=== PATIENT | male | born 1955 | race Hispanic/Latino ===

== ENCOUNTER 2018-12-08 23:21 | Emergency (ER) | payer OTHER ==
[~2018-12-08 23:21] MED LIST: ASPI-1197 PO; GLIP1TAB6 PO
[2018-12-08] MEDS ORDERED: KETOROLAC TROMETHAMINE 60 MG/2 ML VIAL ONE (23:59)
[2018-12-08] MEDS ORDERED: DIAZEPAM 5 MG TABLET ONE (23:59)
[2018-12-09] LABS: APPEARANCE,URINE Clear (CLEAR); BILIRUBIN,URINE Negative (NEGATIVE); COLOR,URINE Yellow (YELLOW); GLUCOSE, URINE (UA) Negative (NEGATIVE); KETONES,URINE Negative (NEGATIVE); LEUKOCYTE ESTERASE ,URINE Negative (NEGATIVE); NITRATE,URINE Negative (NEGATIVE); OCCULT BLOOD,URINE Negative (NEGATIVE); PROTEIN,URINE Negative (NEGATIVE)
[2018-12-09 01:14] LABS: BASOPHILS % (AUTO) 0.8 % (0.0-5.0); EOSINOPHILS % (AUTO) 3.4 % (0.0-8.0); HEMATOCRIT 40.4 % (42-54); LYMPHOCYTES % (AUTO) 34.7 % (21.0-51.0); MEAN CORPUSCULAR HEMOGLOBIN 30.8 pg (27.0-33.0); MEAN CORPUSCULAR VOLUME 90.7 fL (79-99); NEUTROPHILS % (AUTO) 54.1 % (40.0-77.0); NUCLEATED RED BLOOD CELLS 0.1 % (0.0-0.19); PLATELET COUNT (AUTO) 179 K/uL (130-400); RED BLOOD CELL COUNT(AUTO) 4.45 MIL/uL (4.50-6.20); RED CELL DISTRIBUTION WIDTH 13.6 % (11.0-15.5); WHITE BLOOD COUNT (AUTO) 7.9 K/uL (4.8-10.8)
[2018-12-09 01:22] LABS: CREATININE 0.9 mg/dL (0.5-1.5); POTASSIUM 4.6 mmol/L (3.5-5.1)
[2018-12-09 01:27] LABS: ALBUMIN 3.8 g/dL (3.5-5.0); BILIRUBIN,DIRECT 0.1 mg/dL (0.0-0.3); BILIRUBIN,TOTAL 0.5 mg/dL (0.2-1.0)
== END 2018-12-09 02:36 | disposition home or self-care (01) ==
LOC: EDH 23:21
DX: S33.5XXA Sprain of ligaments of lumbar spine, initial encounter (principal); S23.3XXA Sprain of ligaments of thoracic spine, initial encounter; E11.9 Type 2 diabetes mellitus without complications; X58.XXXA Exposure to other specified factors, initial encounter; Y93.89 Activity, other specified; Y92.89 Other specified places as the place of occurrence of the external cause; Y99.8 Other external cause status
CPT/HCPCS: 36415; 74176; 80048; 80076; 81003; 84484; 85025; 93005; 96372; 99285; J1885

== ENCOUNTER 2020-08-05 15:21 | Inpatient (IN) | payer OTHER, MEDICARE ==
[~2020-08-05] VITALS: Ht 170.2 cm; Wt 75.3 kg
[~2020-08-05 15:21] MED LIST changes: -GLIP1TAB6 PO; +GLYB1TAB32 PO
[2020-08-05 15:56] LABS: BASOPHILS % (AUTO) 0.5 % (0.0-5.0); HEMATOCRIT 38.8 % (42-54); LYMPHOCYTES % (AUTO) 20.2 % (21.0-51.0); MEAN CORPUSCULAR HEMOGLOBIN 29.2 pg (27.0-33.0); MEAN CORPUSCULAR HGB CONC 33.2 g/dL (32.0-36.0); MEAN CORPUSCULAR VOLUME 87.8 fL (79-99); MONOCYTES % (AUTO) 9.1 % (3.0-13.0); NEUTROPHILS % (AUTO) 68.9 % (40.0-77.0); PLATELET COUNT (AUTO) 417 K/uL (130-400); RED BLOOD CELL COUNT(AUTO) 4.42 MIL/uL (4.50-6.20); RED CELL DISTRIBUTION WIDTH 16.5 % (11.0-15.5)
[2020-08-05] MEDS ORDERED: DICYCLOMINE 20MG (10MG/ML) AMP IM ONE (15:58)
[2020-08-05] MEDS ORDERED: ONDANSETRON 4MG INJ ONE (15:58)
[2020-08-05] MEDS ORDERED: MORPHINE 4 MG SYG ONE (15:58)
[2020-08-05] MEDS ORDERED: 0.9%NACL 1000ML 1,000 ML IV ONE (16:02)
[2020-08-05 16:05] LABS: APPEARANCE,URINE SL CLOUDY (CLEAR); BILIRUBIN,URINE LARGE (NEGATIVE); COLOR,URINE ORANGE (YELLOW); GLUCOSE, URINE (UA) NEGATIVE (NEGATIVE); KETONES,URINE 5 mg/dL (NEGATIVE); LEUKOCYTE ESTERASE ,URINE NEGATIVE (NEGATIVE); NITRATE,URINE NEGATIVE (NEGATIVE); OCCULT BLOOD,URINE TRACE-INTACT (NEGATIVE); PROTEIN,URINE TRACE mg/dL (NEGATIVE); UROBILINOGEN,URINE 0.2 mg/dL (0.2-1.0)
[2020-08-05] MEDS ORDERED: DiphenhydrAMINE HCL 50 MG/ML VIAL ONE (16:11)
[2020-08-05 16:27] LABS: B-TYPE NATRIURETIC PEPTIDE 32 pg/mL (0-100)
[2020-08-05 16:37] LABS: CREATININE 1.2 mg/dL (0.5-1.5); POTASSIUM 3.6 mmol/L (3.5-5.1)
[2020-08-05 16:42] LABS: ALBUMIN 3.5 g/dL (3.5-5.0); BILIRUBIN,TOTAL 10.2 mg/dL (0.2-1.0); TOTAL PROTEIN, SERUM 9.2 g/dL (6.0-8.3)
[2020-08-05 16:43] LABS: RBC,URINE 0-1 /HPF (0-1)
[2020-08-05 16:44] LABS: BACTERIA,URINE Few /HPF (None Seen)
[2020-08-05 16:49] LABS: OTHER CASTS, URINE MIXED CELL CASTS 1+ /LPF (None Seen)
[2020-08-05 16:50] LABS: MUCUS,URINE Rare LPF (None Seen); SQUAMOUS EPITHELIAL CELL,UR Rare /HPF (0-2)
[2020-08-05] MEDS ORDERED: 1/2 NS 1000ML 1,000 ML IV ONE (17:58)
[2020-08-05] MEDS ORDERED: PANTOPRAZOLE 40 MG/VIAL ONE (21:37)
[2020-08-05 22:40] VITALS: BP 132/89
[2020-08-05] MEDS ORDERED: LACT10SO5 PO (23:26)
[2020-08-05] MEDS ORDERED: DULA1.5P SQ (23:26)
[2020-08-05] MEDS ORDERED: GLIP1TAB6 PO (23:26)
[2020-08-05] MEDS ORDERED: CHOL4PAC21 PO (23:26)
[2020-08-05] MEDS ORDERED: ONDA4TAB4 PO (23:26)
[2020-08-05] MEDS ORDERED: OMEP40CA21 PO (23:26)
[2020-08-05] MEDS: 1/2 NS 1000ML 1,000 ML IV SCH (23:45)
[2020-08-05] MEDS ORDERED: ONDANSETRON 4MG INJ IVP PRN (23:45)
[2020-08-06] VITALS (25 sets, daily range): BP systolic 117–169; BP diastolic 69–135
[2020-08-06 05:12] LABS: BASOPHILS % (AUTO) 0.6 % (0.0-5.0); EOSINOPHILS % (AUTO) 2.6 % (0.0-8.0); HEMATOCRIT 33.4 % (42-54); LYMPHOCYTES % (AUTO) 21.5 % (21.0-51.0); MEAN CORPUSCULAR HGB CONC 33.2 g/dL (32.0-36.0); MEAN CORPUSCULAR VOLUME 87.2 fL (79-99); MONOCYTES % (AUTO) 9.6 % (3.0-13.0); NEUTROPHILS % (AUTO) 65.4 % (40.0-77.0); PLATELET COUNT (AUTO) 299 K/uL (130-400); RED BLOOD CELL COUNT(AUTO) 3.83 MIL/uL (4.50-6.20); RED CELL DISTRIBUTION WIDTH 16.6 % (11.0-15.5); WHITE BLOOD COUNT (AUTO) 6.9 K/uL (4.8-10.8)
[2020-08-06 05:36] LABS: ALBUMIN 2.8 g/dL (3.5-5.0); BILIRUBIN,TOTAL 9.8 mg/dL (0.2-1.0); CREATININE 0.4 mg/dL (0.5-1.5); POTASSIUM 3.3 mmol/L (3.5-5.1); TOTAL PROTEIN, SERUM 7.6 g/dL (6.0-8.3)
[2020-08-06] MEDS ORDERED: LIDOCAINE PF 100MG/5ML (2%) SYRINGE 5ML ONE (06:37)
[2020-08-06] MEDS ORDERED: SUCCINYLCHOLINE CHLORIDE 20 MG/ML 10 ML VIAL ONE (06:37)
[2020-08-06] MEDS ORDERED: DEXAMETHASONE SOD PHOSPHATE 10MG/ML 1ML VIAL ONE (06:38)
[2020-08-06] MEDS ORDERED: PROPOFOL 10 MG/ML 20ML VIAL IV ONE ×2 (06:38→06:40)
[2020-08-06] MEDS ORDERED: MIDAZOLAM HCL 1 MG/ML 2ML VIAL ONE (06:38)
[2020-08-06] MEDS ORDERED: GLYCOPYRROLATE 1 MG/5 ML SYRINGE ONE (06:38)
[2020-08-06] MEDS ORDERED: ONDANSETRON 4MG INJ ONE (06:38)
[2020-08-06] MEDS ORDERED: NEOSTIGMINE 5MG/5ML SYR IV ONE (06:38)
[2020-08-06] MEDS ORDERED: ROCURONIUM 10MG/1ML SYR 10 MG/ML ML ONE (06:38)
[2020-08-06] MEDS ORDERED: FENTANYL CITRATE PF 50 MCG/1 ML 2ML VIAL ONE (06:39)
[2020-08-06] MEDS ORDERED: LIDOCAINE HCL-MPF 1% 2ML VIAL IV PRN ×2 (06:45)
[2020-08-06] MEDS ORDERED: POTASSIUM CHLORIDE 10% ELIXIR 20 MEQ/15 ML UDCUP PO PRN (06:45)
[2020-08-06] MEDS ORDERED: POTASSIUM CHLORIDE 20MEQ/100ML 100 ML IV PRN ×2 (06:45)
[2020-08-06] MEDS ORDERED: ONDANSETRON 4MG TABLET PO PRN (07:00)
[2020-08-06] MEDS ORDERED: CHOLESTYRAMINE PACKET 4 GM PACKET PO PRN (07:00)
[2020-08-06] MEDS ORDERED: LACTULOSE 20 GM/30 ML UDCUP PO PRN (07:00)
[2020-08-06] MEDS: METFORMIN HCL 500 MG TABLET PO SCH ×2 (07:18→16:31)
[2020-08-06] MEDS: GLIPIZIDE 5 MG TABLET PO SCH ×2 (07:18→16:32)
[2020-08-06] MEDS ORDERED: IOHEXOL-350 50ML VIAL IV ONE (07:44)
[2020-08-06] MEDS: 1/2 NS 1000ML 1,000 ML IV SCH ×3 (07:45→21:56)
[2020-08-06] MEDS: INDOMETHACIN 50 MG SUPP.RECT RC SCH ×2 (08:15→08:55)
[2020-08-06] MEDS: ASPIRIN 81MG CHEW TAB PO SCH (09:00)
[2020-08-06] MEDS ORDERED: ***HM***(Dulaglutide (Trulicity) 1.5 MG) SQ SCH (09:00)
[2020-08-06] MEDS: PANTOPRAZOLE 40 MG TAB DR PO SCH ×2 (09:00→16:31)
[2020-08-06] MEDS: PANTOPRAZOLE 40 MG/VIAL IVP SCH (09:00)
[2020-08-06] MEDS: KCL 20 MEQ ERTAB PO PRN (21:56)
[2020-08-06] MEDS: ZOSYN 3.375GM+NS 50ML 50 ML IV SCH (21:56)
[2020-08-07] MEDS: KCL 20 MEQ ERTAB PO PRN (00:06)
[2020-08-07 04:25] VITALS: BP 113/71
[2020-08-07 06:29] LABS: ALBUMIN 2.5 g/dL (3.5-5.0); BILIRUBIN,TOTAL 10.3 mg/dL (0.2-1.0); TOTAL PROTEIN, SERUM 7.4 g/dL (6.0-8.3)
[2020-08-07 06:33] LABS: BILIRUBIN,DIRECT 8.3 mg/dL (0.0-0.3)
[2020-08-07] MEDS: ZOSYN 3.375GM+NS 50ML 50 ML IV SCH ×3 (06:35→21:04)
[2020-08-07 07:04] VITALS: BP 103/71
[2020-08-07] MEDS: METFORMIN HCL 500 MG TABLET PO SCH ×2 (08:08→17:00)
[2020-08-07] MEDS: GLIPIZIDE 5 MG TABLET PO SCH ×2 (08:08→17:00)
[2020-08-07] MEDS: PANTOPRAZOLE 40 MG/VIAL IVP SCH (08:09)
[2020-08-07] MEDS: PANTOPRAZOLE 40 MG TAB DR PO SCH ×2 (08:09→16:59)
[2020-08-07] MEDS: ASPIRIN 81MG CHEW TAB PO SCH (08:09)
[2020-08-07] MEDS: 1/2 NS 1000ML 1,000 ML IV SCH ×3 (09:33→21:04)
[2020-08-07] MEDS ORDERED: HYDROXYZINE 25 MG TABLET PO SCH (11:45)
[2020-08-07 12:10] VITALS: BP 102/72
[2020-08-07 16:00] VITALS: BP 117/73
[2020-08-07 20:00] VITALS: BP 116/78
[2020-08-07 23:06] VITALS: BP 124/79
[2020-08-08 04:16] VITALS: BP 119/81
[2020-08-08 05:01] LABS: BASOPHILS % (AUTO) 0.8 % (0.0-5.0); EOSINOPHILS % (AUTO) 3.8 % (0.0-8.0); HEMATOCRIT 35.6 % (42-54); LYMPHOCYTES % (AUTO) 23.6 % (21.0-51.0); MEAN CORPUSCULAR HEMOGLOBIN 28.4 pg (27.0-33.0); MEAN CORPUSCULAR VOLUME 88.8 fL (79-99); MONOCYTES % (AUTO) 7.5 % (3.0-13.0); NEUTROPHILS % (AUTO) 64.1 % (40.0-77.0); PLATELET COUNT (AUTO) 345 K/uL (130-400); RED BLOOD CELL COUNT(AUTO) 4.01 MIL/uL (4.50-6.20); RED CELL DISTRIBUTION WIDTH 17.2 % (11.0-15.5); WHITE BLOOD COUNT (AUTO) 8.5 K/uL (4.8-10.8)
[2020-08-08] MEDS: ZOSYN 3.375GM+NS 50ML 50 ML IV SCH ×3 (05:05→20:52)
[2020-08-08 05:17] LABS: CREATININE 0.9 mg/dL (0.5-1.5); POTASSIUM 3.5 mmol/L (3.5-5.1)
[2020-08-08 07:00] VITALS: BP 136/78
[2020-08-08] MEDS: KCL 20 MEQ ERTAB PO PRN ×3 (07:03→23:30)
[2020-08-08] MEDS: PANTOPRAZOLE 40 MG/VIAL IVP SCH (07:54)
[2020-08-08] MEDS: ASPIRIN 81MG CHEW TAB PO SCH (08:00)
[2020-08-08] MEDS: PANTOPRAZOLE 40 MG TAB DR PO SCH ×2 (08:00→17:42)
[2020-08-08] MEDS: METFORMIN HCL 500 MG TABLET PO SCH ×2 (08:00→17:42)
[2020-08-08] MEDS: GLIPIZIDE 5 MG TABLET PO SCH ×2 (08:00→17:42)
[2020-08-08] MEDS: 1/2 NS 1000ML 1,000 ML IV SCH ×3 (08:01→20:53)
[2020-08-08 11:30] VITALS: BP 135/85
[2020-08-08 16:00] VITALS: BP 145/88
[2020-08-08 20:00] VITALS: BP 139/87
[2020-08-08] MEDS ORDERED: HYDROXYZINE 25 MG TABLET PO PRN (21:00)
[2020-08-09] VITALS: BP 125/85
[2020-08-09 04:00] VITALS: BP 137/83
[2020-08-09] MEDS: ZOSYN 3.375GM+NS 50ML 50 ML IV SCH (04:19)
[2020-08-09] MEDS: 1/2 NS 1000ML 1,000 ML IV SCH (05:30)
[2020-08-09] MEDS: PANTOPRAZOLE 40 MG TAB DR PO SCH (06:32)
[2020-08-09 07:30] VITALS: BP 129/92
[2020-08-09] MEDS: ASPIRIN 81MG CHEW TAB PO SCH (08:21)
[2020-08-09] MEDS: METFORMIN HCL 500 MG TABLET PO SCH (08:21)
[2020-08-09] MEDS: GLIPIZIDE 5 MG TABLET PO SCH (08:22)
[2020-08-09] MEDS: PANTOPRAZOLE 40 MG/VIAL IVP SCH (08:22)
[2020-08-09 11:00] VITALS: BP 130/84
== END 2020-08-09 12:30 | disposition home or self-care (01) | DRG 444 ==
LOC: EDH 15:21 → OBSVTOIN 17:35 → EDHIP 17:35 → 3CH 21:53
PROVIDERS: ADMIT Internal Medicine; ATTEND Internal Medicine
PROC: 0FB98ZX Excision of Common Bile Duct, Via Natural or Artificial Opening Endoscopic, Diagnostic (ICD-10-PCS; principal; 2020-08-06)
PROC: 0FB98ZX Excision of Common Bile Duct, Via Natural or Artificial Opening Endoscopic, Diagnostic (ICD-10-PCS; 2020-08-06)
PROC: 0F798DZ Dilation of Common Bile Duct with Intraluminal Device, Via Natural or Artificial Opening Endoscopic (ICD-10-PCS; 2020-08-06)
DX: K83.09 Other cholangitis (principal); K83.1 Obstruction of bile duct; D49.0 Neoplasm of unspecified behavior of digestive system; L29.9 Pruritus, unspecified; K83.8 Other specified diseases of biliary tract; K86.9 Disease of pancreas, unspecified; I10 Essential (primary) hypertension; E11.9 Type 2 diabetes mellitus without complications; E78.5 Hyperlipidemia, unspecified; Z20.822 Contact with and (suspected) exposure to COVID-19; Z82.0 Family history of epilepsy and other diseases of the nervous system; Z83.3 Family history of diabetes mellitus; Z82.49 Family history of ischemic heart disease and other diseases of the circulatory system
CPT/HCPCS: 36415; 43242; 43264; 43273; 43274; 74328; 74330; 76705; 80048; 80053; 80076; 81001; 82550; 82948; 83605; 83690; 83880; 84132; 84484; 85025; 87040; 87426; 88173; 88305; 88342; A4606; C1769; C9113; G0378; G9654; J0330; J0500; J1100; J1200; J2001; J2250; J2270; J2405; J2543; J2704; J2710; J3010; J3490; J7030; Q9967; U0003